=== PATIENT | male | born 1955 | race Caucasian/White ===

== ENCOUNTER 2017-06-16 13:03 | Inpatient (IN) | payer OTHER ==
[2017-06-16] MEDS: BACLOFEN 10 MG TAB PO (01:20)
[2017-06-16] MEDS: OMEPRAZOLE 20 MG CAP PO (01:20)
[2017-06-16] MEDS: MORPHINE 4 MG/ML 1ML SYRINGE IV ×3 (14:50→20:46)
[2017-06-16 14:53] LABS: BASO # 0.1 10^3/uL (0.0-0.2); BASO % 0.7 % (0.0-1.0); EOS # 0.1 10^3/uL (0.0-0.50); EOS % 0.6 % (0.0-3.0); IMMATURE GRANULOCYTE # 0.1 10^3/uL (0-0); IMMATURE GRANULOCYTE % 0.6 % (0-0); LYMPH # 3.6 10^3/uL (1.5-4.5); LYMPH % 22.8 % (24.0-44.0); MEAN CORPUSCULAR HEMOGLOBIN 28.3 pg (27.0-33.0); MEAN CORPUSCULAR HGB CONC 33.5 g/dl (32.0-36.5); MEAN CORPUSCULAR VOLUME 84.5 fl (80.0-96.0); MONO # 1.1 10^3/uL (0.0-0.8); MONO % 7.1 % (0.0-5.0); NEUTROPHILS # 10.7 10^3/uL (1.8-7.7); NEUTROPHILS % 68.2 % (36.0-66.0); PLATELET COUNT, AUTOMATED 461 10^3/uL (150-450); RED CELL DISTRIBUTION WIDTH 12.4 % (11.5-14.5); WHITE BLOOD COUNT 15.6 10^3/uL (4.0-10.0)
[2017-06-16 15:08] LABS: INR 0.98
[2017-06-16 15:16] LABS: ALBUMIN 3.9 GM/DL (3.2-5.2); ALBUMIN/GLOBULIN RATIO 0.93 (1.00-1.93); ALKALINE PHOSPHATASE 61 U/L (45-117); ALT/SGPT 40 U/L (12-78); ANION GAP 6 MEQ/L (8-16); AST/SGOT 28 U/L (7-37); BILIRUBIN,TOTAL 0.4 MG/DL (0.2-1.0); BLOOD UREA NITROGEN 20 MG/DL (7-18); CALCIUM LEVEL 9.2 MG/DL (8.8-10.2); CARBON DIOXIDE LEVEL 33 MEQ/L (21-32); CHLORIDE LEVEL 101 MEQ/L (98-107); CREATININE FOR GFR 0.92 MG/DL (0.70-1.30); GLOMERULAR FILTRATION RATE > 60.0 (>49); GLUCOSE, FASTING 82 MG/DL (80-110); POTASSIUM SERUM 3.6 MEQ/L (3.5-5.1); SODIUM LEVEL 140 MEQ/L (136-145); TOTAL PROTEIN 8.1 GM/DL (6.4-8.2)
[2017-06-16] MEDS: HYDROmorphone HCL 1 MG/ML SYRINGE (J1170) IV ×2 (16:30→18:05)
[2017-06-16] MEDS ORDERED: LIDOCAINE 1% MDV INJ 50 ML VIAL SC (17:00)
[2017-06-16] MEDS: LIDOCAINE 1% MDV 20ML VIAL SC (17:15)
[2017-06-16] MEDS: HumaLOG INSULIN (NovoLOG) PER UNIT SC (21:00)
[2017-06-16] MEDS ORDERED: LEVEMIR (INSULIN DETEMIR) 1 UNITS/0.01ML SC (21:00)
[2017-06-16] MEDS ORDERED: GLUCOSE 4 GM CHEW TABLET PO (21:45)
[2017-06-16] MEDS ORDERED: DEXTROSE 50% 50 ML SYRINGE IV (21:45)
[2017-06-16] MEDS ORDERED: GLUCAGON FOR INJ 1 MG VIAL (J1610) SC (21:45)
[2017-06-16] MEDS ORDERED: ONDANSETRON 4MG/2ML VIAL (J2405) IV (22:30)
[2017-06-16] MEDS ORDERED: PERCOCET 5MG/325MG TAB PO (22:30)
[2017-06-17 00:23] LABS: MAGNESIUM LEVEL 1.8 MG/DL (1.8-2.4)
[2017-06-17] MEDS: LR 1,000 ML IV ×4 (02:08→17:30)
[2017-06-17] MEDS: PERCOCET 5MG/325MG TAB PO ×2 (03:13→08:07)
[2017-06-17 05:15] LABS: MEAN CORPUSCULAR HEMOGLOBIN 28.2 pg (27.0-33.0); MEAN CORPUSCULAR HGB CONC 32.9 g/dl (32.0-36.5); MEAN CORPUSCULAR VOLUME 85.8 fl (80.0-96.0); PLATELET COUNT, AUTOMATED 374 10^3/uL (150-450); RED CELL DISTRIBUTION WIDTH 12.6 % (11.5-14.5); WHITE BLOOD COUNT 11.7 10^3/uL (4.0-10.0)
[2017-06-17 05:31] LABS: ESTIMATED AVERAGE GLUCOSE 192 MG/DL (60-110)
[2017-06-17 05:32] LABS: ANION GAP 8 MEQ/L (8-16); BLOOD UREA NITROGEN 23 MG/DL (7-18); CALCIUM LEVEL 8.7 MG/DL (8.8-10.2); CARBON DIOXIDE LEVEL 33 MEQ/L (21-32); CHLORIDE LEVEL 100 MEQ/L (98-107); CREATININE FOR GFR 0.82 MG/DL (0.70-1.30); GLOMERULAR FILTRATION RATE > 60.0 (>49); GLUCOSE, FASTING 174 MG/DL (80-110); POTASSIUM SERUM 3.8 MEQ/L (3.5-5.1); SODIUM LEVEL 141 MEQ/L (136-145)
[2017-06-17] MEDS: HumaLOG INSULIN (NovoLOG) PER UNIT SC ×3 (07:30→21:00)
[2017-06-17] MEDS: FLUoxetine 20 MG CAP PO (08:05)
[2017-06-17] MEDS: LISINOPRIL 20 MG TAB PO (08:05)
[2017-06-17] MEDS: LEVEMIR (INSULIN DETEMIR) 1 UNITS/0.01ML SC (08:05)
[2017-06-17] MEDS: OMEPRAZOLE 20 MG CAP PO ×2 (08:05→21:00)
[2017-06-17] MEDS: BACLOFEN 10 MG TAB PO (08:09)
[2017-06-17] MEDS: ceFAZolin 2 GM/D5W 50 ML IV BAG (J0690 PER 500MG) As Ordered (12:54)
[2017-06-17] MEDS ORDERED: LIDOCAINE 2% INJ 100 MG/5 ML SDV (FOR ANES.) As Ordered (13:09)
[2017-06-17] MEDS ORDERED: MIDAZOLAM INJ 2 MG/2 ML VIAL (J2250) As Ordered ×2 (13:09→16:34)
[2017-06-17] MEDS ORDERED: PROPOFOL 200 MG/20 ML VIAL As Ordered (13:09)
[2017-06-17] MEDS ORDERED: SUCCINYLCHOLINE 100 MG/5 ML SYRINGE (J0330) As Ordered (13:09)
[2017-06-17] MEDS ORDERED: fentaNYL 250 MCG/5 ML INJECTION (J3010) As Ordered (13:09)
[2017-06-17] MEDS ORDERED: ROCURONIUM BROMIDE 50 MG/5 ML VIAL As Ordered ×2 (13:09→14:22)
[2017-06-17] MEDS ORDERED: HYDROmorphone HCL 2 MG/ML 1ML VIAL (J1170) As Ordered (14:22)
[2017-06-17] MEDS ORDERED: PHENYLephrine HCL 500 MCG/5 ML (100MCG/ML) SYRINGE (J2370) As Ordered ×3 (14:22→15:54)
[2017-06-17] MEDS ORDERED: ONDANSETRON 4MG/2ML VIAL (J2405) As Ordered (15:34)
[2017-06-17] MEDS ORDERED: KETOROLAC 60 MG/2 ML VIAL (J1885) As Ordered (15:34)
[2017-06-17] MEDS ORDERED: GLYCOPYRROLATE INJ 0.2 MG/ML 2 ML VIAL As Ordered ×2 (15:54)
[2017-06-17] MEDS ORDERED: NEOSTIGMINE 10 MG/10 ML VIAL (J2710) As Ordered (15:54)
[2017-06-17] MEDS: BUPIVACAINE HCL 0.5% 30 ML VIAL As Ordered (16:25)
[2017-06-17] MEDS ORDERED: fentaNYL 100 MCG/2 ML INJECTION (J3010) As Ordered (16:34)
[2017-06-17] MEDS ORDERED: ACETAMINOPHEN TAB 650MG DOSE (2X325MG) PO (17:30)
[2017-06-17] MEDS ORDERED: PERCOCET 5MG/325MG TAB PO (17:30)
[2017-06-17] MEDS ORDERED: MORPHINE 10 MG/ML 1ML VIAL IV (17:30)
[2017-06-17] MEDS ORDERED: FLEET ENEMA PR (17:30)
[2017-06-17] MEDS ORDERED: ONDANSETRON 4MG/2ML VIAL (J2405) IV (17:30)
[2017-06-17] MEDS ORDERED: fentaNYL 100 MCG/2 ML INJECTION (J3010) IV (17:30)
[2017-06-17] MEDS ORDERED: NALOXONE INJ 0.4 MG/1 ML VIAL (J2310) As Ordered (18:54)
[2017-06-17 18:55] LABS: ABG BASE EXCESS -3.2 (-2.0-2.0); ABG HCO3 25.8 MEQ/L (22.0-26.0); ABG STANDARD HCO3 21.2 MEQ/L (22.0-26.0); ABG TOTAL CO2 27.8 MEQ/L (23.0-31.0)
[2017-06-17] MEDS: NALOXONE INJ 2 MG/2 ML SYRINGE (J2310) IV (18:55)
[2017-06-17 19:00] LABS: ABG PARTIAL PRESSURE CO2 64.3 mmHg (35.0-45.0)
[2017-06-17 19:02] LABS: ABG pH (ARTERIAL) 7.221 UNITS (7.350-7.450)
[2017-06-17 20:46] LABS: ABG BASE EXCESS -3.3 (-2.0-2.0); ABG HCO3 24.4 MEQ/L (22.0-26.0); ABG PARTIAL PRESSURE CO2 55.3 mmHg (35.0-45.0); ABG PARTIAL PRESSURE O2 90.2 mmHg (75.0-100.0); ABG STANDARD HCO3 21.7 MEQ/L (22.0-26.0); ABG TOTAL CO2 26.1 MEQ/L (23.0-31.0); ABG pH (ARTERIAL) 7.263 UNITS (7.350-7.450)
[2017-06-17] MEDS: SENOKOT S TAB PO (21:00)
[2017-06-18] MEDS: KETOROLAC 30 MG/ML VIAL (J1885) IV (02:33)
[2017-06-18 04:08] LABS: MEAN CORPUSCULAR HEMOGLOBIN 28.8 pg (27.0-33.0); MEAN CORPUSCULAR HGB CONC 31.9 g/dl (32.0-36.5); MEAN CORPUSCULAR VOLUME 90.2 fl (80.0-96.0); PLATELET COUNT, AUTOMATED 327 10^3/uL (150-450); RED CELL DISTRIBUTION WIDTH 12.7 % (11.5-14.5); WHITE BLOOD COUNT 13.9 10^3/uL (4.0-10.0)
[2017-06-18 04:29] LABS: ANION GAP 6 MEQ/L (8-16); BLOOD UREA NITROGEN 22 MG/DL (7-18); CALCIUM LEVEL 7.8 MG/DL (8.8-10.2); CARBON DIOXIDE LEVEL 33 MEQ/L (21-32); CHLORIDE LEVEL 103 MEQ/L (98-107); CREATININE FOR GFR 0.95 MG/DL (0.70-1.30); GLOMERULAR FILTRATION RATE > 60.0 (>49); GLUCOSE, FASTING 203 MG/DL (80-110); MAGNESIUM LEVEL 1.9 MG/DL (1.8-2.4); POTASSIUM SERUM 4.1 MEQ/L (3.5-5.1); SODIUM LEVEL 142 MEQ/L (136-145)
[2017-06-18] MEDS: ACETAMINOPHEN 500 MG TAB PO (05:43)
[2017-06-18] MEDS ORDERED: LEVEMIR (INSULIN DETEMIR) 1 UNITS/0.01ML SC (09:00)
[2017-06-18 09:13] LABS: ABG BASE EXCESS 5.6 (-2.0-2.0); ABG HCO3 29.6 MEQ/L (22.0-26.0); ABG PARTIAL PRESSURE CO2 40.8 mmHg (35.0-45.0); ABG PARTIAL PRESSURE O2 74.3 mmHg (75.0-100.0); ABG STANDARD HCO3 29.5 MEQ/L (22.0-26.0); ABG TOTAL CO2 30.8 MEQ/L (23.0-31.0); ABG pH (ARTERIAL) 7.478 UNITS (7.350-7.450)
[2017-06-18] MEDS: HumaLOG INSULIN (NovoLOG) PER UNIT SC ×4 (10:11→20:15)
[2017-06-18] MEDS: SENOKOT S TAB PO ×2 (10:11→19:49)
[2017-06-18] MEDS: LEVEMIR (INSULIN DETEMIR) 1 UNITS/0.01ML SC (10:11)
[2017-06-18] MEDS: MIRALAX *UNIT DOSE* 17GM PACKET PO (10:11)
[2017-06-18] MEDS: FUROSEMIDE 20 MG/2 ML VIAL (J1940) IV (10:12)
[2017-06-18] MEDS: ENOXAPARIN 40 MG/0.4 ML SYRINGE (J1650) SC (10:12)
[2017-06-18] MEDS: OMEPRAZOLE 20 MG CAP PO ×2 (10:12→19:48)
[2017-06-18] MEDS: FLUoxetine 20 MG CAP PO (10:12)
[2017-06-18] MEDS: PERCOCET 5MG/325MG TAB PO ×3 (10:53→20:17)
[2017-06-18] MEDS: ASPIRIN 81 MG ENTERIC TAB PO (14:18)
[2017-06-18] MEDS: IBUPROFEN 400 MG TAB PO (19:48)
[2017-06-19] MEDS ORDERED: OXYCODONE/APAP 5MG/325MG(BULK FOR ED) 1 TABLET PO
[2017-06-19] MEDS ORDERED: ENOXAPARIN 40 MG/0.4 ML SYRINGE (J1650) SC
[2017-06-19] MEDS: PERCOCET 5MG/325MG TAB PO ×3 (04:06→15:02)
[2017-06-19 04:27] LABS: MEAN CORPUSCULAR HEMOGLOBIN 28.3 pg (27.0-33.0); MEAN CORPUSCULAR VOLUME 88.6 fl (80.0-96.0); PLATELET COUNT, AUTOMATED 289 10^3/uL (150-450); RED CELL DISTRIBUTION WIDTH 12.2 % (11.5-14.5); WHITE BLOOD COUNT 12.7 10^3/uL (4.0-10.0)
[2017-06-19 04:51] LABS: ANION GAP 5 MEQ/L (8-16); BLOOD UREA NITROGEN 15 MG/DL (7-18); CALCIUM LEVEL 8.3 MG/DL (8.8-10.2); CARBON DIOXIDE LEVEL 32 MEQ/L (21-32); CHLORIDE LEVEL 100 MEQ/L (98-107); CREATININE FOR GFR 0.65 MG/DL (0.70-1.30); GLOMERULAR FILTRATION RATE > 60.0 (>49); GLUCOSE, FASTING 170 MG/DL (80-110); MAGNESIUM LEVEL 2.1 MG/DL (1.8-2.4); POTASSIUM SERUM 3.6 MEQ/L (3.5-5.1); SODIUM LEVEL 137 MEQ/L (136-145)
[2017-06-19] MEDS: ENOXAPARIN 40 MG/0.4 ML SYRINGE (J1650) SC (09:49)
[2017-06-19] MEDS: MIRALAX *UNIT DOSE* 17GM PACKET PO (09:49)
[2017-06-19] MEDS: HumaLOG INSULIN (NovoLOG) PER UNIT SC ×2 (09:50→13:20)
[2017-06-19] MEDS: LEVEMIR (INSULIN DETEMIR) 1 UNITS/0.01ML SC (09:55)
[2017-06-19] MEDS: FLUoxetine 20 MG CAP PO (09:56)
[2017-06-19] MEDS: POTASSIUM CHLORIDE 10 MEQ SR TABLET PO (09:56)
[2017-06-19] MEDS: SENOKOT S TAB PO (09:57)
[2017-06-19] MEDS: OMEPRAZOLE 20 MG CAP PO (09:57)
[2017-06-19] MEDS: ASPIRIN 81 MG ENTERIC TAB PO (09:57)
[2017-06-19] MEDS: FUROSEMIDE 20 MG/2 ML VIAL (J1940) IV (09:57)
== END 2017-06-19 16:50 | disposition home or self-care (01) | DRG 492 ==
LOC: M PCU 06-17 01:06 → M ED 13:03 → M ICU 06-17 21:30 → M ED INP 21:05 → M ICU 06-17 21:42
PROC: 0QSJ04Z Reposition Right Fibula with Internal Fixation Device, Open Approach (ICD-10-PCS; principal; 2017-06-17 09:45)
PROC: 0QSG04Z Reposition Right Tibia with Internal Fixation Device, Open Approach (ICD-10-PCS; 2017-06-17 09:45)
PROC: 0SSFXZZ Reposition Right Ankle Joint, External Approach (ICD-10-PCS; 2017-06-17 12:42)
DX: S82.841A Displaced bimalleolar fracture of right lower leg, initial encounter for closed fracture (principal); J96.01 Acute respiratory failure with hypoxia; J96.02 Acute respiratory failure with hypercapnia; I50.31 Acute diastolic (congestive) heart failure; E11.9 Type 2 diabetes mellitus without complications; R00.0 Tachycardia, unspecified; I11.0 Hypertensive heart disease with heart failure; I50.810 Right heart failure, unspecified; G47.33 Obstructive sleep apnea (adult) (pediatric); W00.0XXA Fall on same level due to ice and snow, initial encounter; Y92.014 Private driveway to single-family (private) house as the place of occurrence of the external cause; Y93.29 Activity, other involving ice and snow; Y99.9 Unspecified external cause status; Z79.82 Long term (current) use of aspirin; Z79.4 Long term (current) use of insulin; Z79.899 Other long term (current) drug therapy

== ENCOUNTER 2018-09-28 16:13 | Emergency (ER) | payer MEDICARE, OTHER ==
[~2018-09-28] VITALS: Ht 177.8 cm; Wt 118.2 kg
[~2018-09-28 16:13] MED LIST: ASPI81TA26 PO; ASPI81TA85 PO; BACL10TA2 PO; FLUO20CA19 PO; INSULADS INJ; INSULANT; LISI20TA PO; LISINOPRIL-HCTZ; LOVE1INJ SC; MELO15TA28 PO; METF10004 PO; OMEP20CA3 PO; OXYC1TAB23 PO; PERC5TAB12 PO; VITA-182 PO
[2018-09-28] MEDS ORDERED: ATOR80TA59 PO (16:46)
[2018-09-28] MEDS ORDERED: METF500T13 PO (16:46)
[2018-09-28] MEDS ORDERED: METF-877 PO (16:46)
[2018-09-28] MEDS ORDERED: ABIL1TAB11 PO (16:46)
[2018-09-28] MEDS ORDERED: AMLO10TA5 PO (16:46)
[2018-09-28] MEDS ORDERED: INSULANT SC (16:50)
[2018-09-28] MEDS ORDERED: INSUH10VL SC (16:53)
[2018-09-28 17:08] LABS: BASO # 0.1 10^3/uL (0.0-0.2); BASO % 0.8 % (0.0-1.0); EOS # 0.3 10^3/uL (0.0-0.50); EOS % 3.5 % (0.0-3.0); HEMATOCRIT 43.5 % (42.0-52.0); HEMOGLOBIN 14.6 g/dl (13.5-17.5); LYMPH # 3.7 10^3/uL (1.5-4.5); LYMPH % 48.5 % (24.0-44.0); MEAN CORPUSCULAR HEMOGLOBIN 29.3 pg (27.0-33.0); MEAN CORPUSCULAR HGB CONC 33.6 g/dl (32.0-36.5); MEAN CORPUSCULAR VOLUME 87.3 fl (80.0-96.0); MONO # 0.6 10^3/uL (0.0-0.8); MONO % 8.3 % (0.0-5.0); NEUTROPHILS % 38.5 % (36.0-66.0); PLATELET COUNT, AUTOMATED 313 10^3/uL (150-450); RED BLOOD COUNT 4.98 10^6/uL (4.30-6.10); WHITE BLOOD COUNT 7.7 10^3/uL (4.0-10.0)
[2018-09-28 17:29] LABS: ALBUMIN 3.6 GM/DL (3.2-5.2); ALT/SGPT 35 U/L (12-78); BILIRUBIN,TOTAL 0.2 MG/DL (0.2-1.0); BLOOD UREA NITROGEN 15 MG/DL (7-18); CALCIUM LEVEL 8.8 MG/DL (8.8-10.2); CARBON DIOXIDE LEVEL 29 MEQ/L (21-32); CHLORIDE LEVEL 108 MEQ/L (98-107); CREATININE FOR GFR 0.73 MG/DL (0.70-1.30); GLOMERULAR FILTRATION RATE > 60.0 (>49); GLUCOSE, FASTING 66 MG/DL (70-100); POTASSIUM SERUM 3.4 MEQ/L (3.5-5.1); SODIUM LEVEL 144 MEQ/L (136-145); TOTAL PROTEIN 6.9 GM/DL (6.4-8.2)
--- NOTE | 2018-09-28 17:34 | REP ---
Clinical: Chest pain. Technique: PA and lateral. Comparison: 06/17/2017. Findings: Mediastinum and cardiac silhouette are within normal limits. The lung asher demonstrate innumerable small miliary nodules which are nonspecific but appear chronic and relatively stable compared to 2013. Subtle superimposed acute process cannot be excluded. However no obvious consolidation, effusion or pneumothorax identified. Skeletal structures are intact. Impression: Diffuse miliary nodules suggest chronic change and may represent sequelae of prior viral infection. No obvious acute process appreciated. Electronically Signed by Cj Jones MD 09/28/2018 05:25 P
[2018-09-28 17:38] LABS: INFLUENZA A AMPLIFICATION NEGATIVE (NEGATIVE); INFLUENZA B AMPLIFICATION NEGATIVE (NEGATIVE)
[2018-09-28] MEDS ORDERED: SPIR-10 PO (18:14)
[2018-09-28] MEDS ORDERED: SPIRONOLACTONE 25 MG TAB PO STA (18:22)
[2018-09-28 18:55] VITALS: BP 184/80
--- NOTE | 2018-09-28 21:20 | ECGEPIP ---
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
--- NOTE | 2018-10-02 14:24 | ED PDOC ---
Post-Departure Follow-Up dr rose faxed formal report of cxr for fu Jayne Purdy MD Oct 02, 2018 14:24
== END 2018-09-28 18:56 | disposition home or self-care (01) ==
LOC: M ED 16:13 → EDUNIT# 16:13 → EDBD 16:13 → M ED 18:56
DX: I10 Essential (primary) hypertension (principal); J06.9 Acute upper respiratory infection, unspecified; R94.31 Abnormal electrocardiogram [ECG] [EKG]; E11.9 Type 2 diabetes mellitus without complications; E78.5 Hyperlipidemia, unspecified; G47.30 Sleep apnea, unspecified; M54.9 Dorsalgia, unspecified; G89.29 Other chronic pain; F41.9 Anxiety disorder, unspecified; F33.9 Major depressive disorder, recurrent, unspecified; E66.9 Obesity, unspecified; Z79.4 Long term (current) use of insulin; Z79.899 Other long term (current) drug therapy

== ENCOUNTER 2019-05-01 12:00 | Day surgery (SDC) | payer OTHER ==
[~2019-05-01] VITALS: Ht 177.8 cm; Wt 117.2 kg
[~2019-05-01 12:00] MED LIST changes: +ABIL1TAB11 PO; +AMLO10TA5 PO; +ATOR80TA59 PO; +D-10TAB3 PO; +INSUH10VL SC; +INSULANT SC; -LISI20TA PO; +LISI20TA19 PO; +METF-877 PO; +METF500T13 PO; +NS 1,000 ML IV ONE; -OMEP20CA3 PO; +OMEP20CA4 PO; +SPIR-10 PO
[2019-05-01] MEDS ORDERED: PROPOFOL 200 MG/20 ML VIAL As Ordered ONE (13:07)
--- NOTE | 2019-05-01 13:36 | ROOR ---
Patient Name: Feng Castillo Procedure Date: 05/01/2019 1:06 PM Date of : 1955 Age: 63 Room: [facility] Gender: Male Note Status: Finalized Procedure: Colonoscopy Indications: High risk colon cancer surveillance: Personal history of colonic polyps Providers: Vidal Sanchez MD Referring MD: Mckinley Sevilla Requesting Provider: Medicines: Monitored Anesthesia Care Complications: No immediate complications. Procedure: Pre-Anesthesia Assessment: - Prior to the procedure, a History and Physical was performed, and patient medications and allergies were reviewed. The patient is competent. The risks and benefits of the procedure and the sedation options and risks were discussed with the patient. All questions were answered and informed consent was obtained. Patient identification and proposed procedure were verified by the physician, the nurse and the anesthesiologist in the endoscopy suite. Mental Status Examination: alert and oriented. Airway Examination: normal oropharyngeal airway and neck mobility. Respiratory Examination: clear to auscultation. CV Examination: normal. Prophylactic Antibiotics: The patient does not require prophylactic antibiotics. Prior Anticoagulants: The patient has taken no previous anticoagulant or antiplatelet agents. ASA Grade Assessment: III - A patient with severe systemic disease. After reviewing the risks and benefits, the patient was deemed in satisfactory condition to undergo the procedure. The anesthesia plan was to use monitored anesthesia care (MAC). Immediately prior to administration of medications, the patient was re-assessed for adequacy to receive sedatives. The heart rate, respiratory rate, oxygen saturations, blood pressure, adequacy of pulmonary ventilation, and response to care were monitored throughout the procedure. The physical status of the patient was re-assessed after the procedure. The Colonoscope was introduced through the anus and advanced to the cecum, identified by appendiceal orifice and ileocecal valve. The colonoscopy was technically difficult and complex due to poor bowel prep, patient with frequent coughing, abdominal breathing, sleep apnea. The quality of the bowel preparation was adequate to identify polyps 6 mm and larger in size. Findings: The perianal and digital rectal examinations were normal. A few small-mouthed diverticula were found in the sigmoid colon. The entire examined colon appeared normal. Impression: - Diverticulosis in the sigmoid colon. - The entire examined colon is normal. - No specimens collected. Recommendation: - Discharge patient to home (ambulatory). - Repeat colonoscopy in 5 years for surveillance. Vidal Sanchez MD Vidal Sanchez MD 05/01/2019 1:35:39 PM Electronically signed by Vidal Sanchez MD Number of Addenda: 0 Note Initiated On: 05/01/2019 1:06 PM Estimated Blood Loss: Estimated blood loss: none.
[2019-05-01 14:04] VITALS: BP 172/72
== END 2019-05-01 14:06 | disposition home or self-care (01) ==
LOC: M OPP 12:00
PROVIDERS: ATTEND Surgery
DX: Z12.11 Encounter for screening for malignant neoplasm of colon (principal); Z86.010 Personal history of colon polyps; K57.30 Diverticulosis of large intestine without perforation or abscess without bleeding; I10 Essential (primary) hypertension; E78.5 Hyperlipidemia, unspecified; E10.9 Type 1 diabetes mellitus without complications; K21.9 Gastro-esophageal reflux disease without esophagitis; M19.90 Unspecified osteoarthritis, unspecified site; G47.30 Sleep apnea, unspecified; F32.9 Major depressive disorder, single episode, unspecified; F41.9 Anxiety disorder, unspecified; R06.83 Snoring; Z79.899 Other long term (current) drug therapy; Z87.891 Personal history of nicotine dependence

== ENCOUNTER 2020-06-12 13:57 | Emergency (ER) | payer OTHER ==
[~2020-06-12] VITALS: Ht 177.8 cm; Wt 112.0 kg
[~2020-06-12 13:57] MED LIST changes: -AMLO10TA5 PO; +AMLO1TAB25 PO; -ASPI81TA85 PO; +ASPI81TA86 PO; -FLUO20CA19 PO; +FLUO20CA22 PO; -LISI20TA19 PO; +LISI20TA35 PO; -NS 1,000 ML IV ONE; +OMEP1CAP73 PO; -OMEP20CA4 PO
[2020-06-12] MEDS ORDERED: TRUL10IN SC (14:13)
[2020-06-12] MEDS ORDERED: TOUJ300I2 SC ×2 (14:13→14:15)
[2020-06-12] MEDS ORDERED: KETOROLAC 60MG 2ML VIAL IM ONE (14:30)
--- NOTE | 2020-06-12 14:57 | REP ---
INDICATION: severe post occip pain bilat, down into neck. COMPARISON: None. TECHNIQUE: Helical scanning is acquired. 5 mm axial images were reformatted. Coronal MPR images were generated. FINDINGS: Bone window settings demonstrate an intact bony calvarium. There is no evidence of skull fracture or incidental bony calvarial lesion. The visualized paranasal sinuses appear clear. No intraorbital abnormality is seen. On soft tissue window setting images; the lateral, third, and fourth ventricles are normal in size and position. Mg-white differentiation pattern is normal above and below the tentorium. There are is no evidence of intracranial hemorrhage. No mass, edema, infarction, or midline shift is seen. No extra-axial fluid collection is appreciated. There is minimal generalized volume loss. There is vascular calcification in the distal internal carotid arteries. IMPRESSION: Vascular calcification and minimal generalized volume loss. Otherwise negative noncontrast head CT.. <Electronically signed by Bernard Ruiz > 06/12/20 [id number]
[2020-06-12 15:04] LABS: BASO # 0.1 10^3/uL (0.0-0.2); BASO % 1.1 % (0.0-1.0); EOS # 0.2 10^3/uL (0.0-0.5); EOS % 2.3 % (0.0-3.0); HEMATOCRIT 50.4 % (42.0-52.0); HEMOGLOBIN 16.9 g/dl (13.5-17.5); LYMPH # 3.9 10^3/uL (1.5-5.0); LYMPH % 37.4 % (24.0-44.0); MEAN CORPUSCULAR HEMOGLOBIN 29.8 pg (27.0-33.0); MEAN CORPUSCULAR HGB CONC 33.5 g/dl (32.0-36.5); MEAN CORPUSCULAR VOLUME 88.9 fl (80.0-96.0); MONO # 0.8 10^3/uL (0.0-0.8); NEUTROPHILS # 5.3 10^3/uL (1.5-8.5); NEUTROPHILS % 50.7 % (36.0-66.0); PLATELET COUNT, AUTOMATED 342 10^3/uL (150-450); RED BLOOD COUNT 5.67 10^6/uL (4.30-6.10); WHITE BLOOD COUNT 10.4 10^3/uL (4.0-10.0)
--- NOTE | 2020-06-12 15:12 | REP ---
INDICATION: severe post occip pain bilat, down into neck, limited ROM. COMPARISON: None. TECHNIQUE: Helical scanning is acquired and overlapping 2 mm high resolution axial images were generated and reviewed at bone and soft tissue window settings. Coronal and sagittal multiplanar re-formations images are generated. FINDINGS: There is no evidence of cervical spine element fracture. No skull base fracture is seen. Cervical vertebral body heights are preserved. Alignment is normal. Facet joints are normally aligned bilaterally at each cervical level on multiplanar re-formations images. There is no evidence of intraspinal or paraspinal hematoma. No extra vertebral abnormality is seen. There are mild degenerative spondylosis changes at C3-4 through C5-6. A small central disc protrusion is seen at the C3-4 disc level. No traumatic abnormality is observed. No extra vertebral abnormality is seen. There is some vascular calcification. IMPRESSION: Mild degenerative spondylosis changes. Small central focal disc protrusion C3-4. No acute bony abnormality.. <Electronically signed by Bernard Ruiz > 06/12/20 [id number]
[2020-06-12 16:14] LABS: ERYTHROCYTE SEDIMENTATION RATE 4 mm/hr (0-20)
[2020-06-12] MEDS ORDERED: CYCL-707 PO (16:16)
[2020-06-12 16:30] VITALS: BP 173/87
== END 2020-06-12 16:32 | disposition home or self-care (01) ==
LOC: M ED 13:57
DX: M50.220 Other cervical disc displacement, mid-cervical region, unspecified level (principal); E11.9 Type 2 diabetes mellitus without complications; I10 Essential (primary) hypertension; E78.5 Hyperlipidemia, unspecified; G47.33 Obstructive sleep apnea (adult) (pediatric); Z99.89 Dependence on other enabling machines and devices; Z79.899 Other long term (current) drug therapy; Z79.82 Long term (current) use of aspirin; Z79.4 Long term (current) use of insulin; Z87.891 Personal history of nicotine dependence
CPT/HCPCS: 36415; 70450; 72125; 85025; 85652; 86140; 96372; 99284; J1885

== ENCOUNTER 2021-09-29 11:33 | Emergency (ER) | payer OTHER, BC ==
[~2021-09-29] VITALS: Ht 177.8 cm; Wt 113.6 kg
[~2021-09-29 11:33] MED LIST changes: +CYCL-707 PO; +TOUJ300I2 SC; +TRUL10IN SC
[2021-09-29 13:01] VITALS: BP 151/69
== END 2021-09-29 13:18 | disposition home or self-care (01) ==
LOC: M ED 11:33
DX: S93.402A Sprain of unspecified ligament of left ankle, initial encounter (principal); S92.002A Unspecified fracture of left calcaneus, initial encounter for closed fracture; X50.9XXA Other and unspecified overexertion or strenuous movements or postures, initial encounter; Y92.89 Other specified places as the place of occurrence of the external cause; Y99.0 Civilian activity done for income or pay; E11.9 Type 2 diabetes mellitus without complications; I10 Essential (primary) hypertension; E78.5 Hyperlipidemia, unspecified; K21.9 Gastro-esophageal reflux disease without esophagitis; Z79.899 Other long term (current) drug therapy; Z79.82 Long term (current) use of aspirin; Z79.4 Long term (current) use of insulin

== ENCOUNTER 2022-01-13 08:49 | Emergency (ER) | payer BC, SELFPAY ==
[~2022-01-13] VITALS: Ht 177.8 cm; Wt 111.9 kg
[2022-01-13] MEDS ORDERED: LIDOCAINE 5% (LIDODERM) PATCH TD ONE (13:30)
[2022-01-13] MEDS ORDERED: KETOROLAC 30 MG/ML 1ML VIAL IM ONE (13:30)
[2022-01-13] MEDS ORDERED: METH-1164 PO (13:34)
[2022-01-13 14:22] VITALS: BP 158/74
[2022-01-13] MEDS ORDERED: LIDO5DIS41 TOP (14:23)
[2022-01-13] MEDS ORDERED: IBUP-1022 PO (14:25)
[2022-01-13] MEDS ORDERED: **NOTE PATIENT COMMENT** MISC XX SCH (21:00)
== END 2022-01-13 14:46 | disposition home or self-care (01) ==
LOC: M ED 08:49
DX: M50.30 Other cervical disc degeneration, unspecified cervical region (principal); G89.29 Other chronic pain; M54.9 Dorsalgia, unspecified; E11.9 Type 2 diabetes mellitus without complications; I10 Essential (primary) hypertension; E78.5 Hyperlipidemia, unspecified; K21.9 Gastro-esophageal reflux disease without esophagitis; G47.30 Sleep apnea, unspecified; Z79.899 Other long term (current) drug therapy; Z79.84 Long term (current) use of oral hypoglycemic drugs
CPT/HCPCS: 72125; 72128; 96372; 99283; J1885

== ENCOUNTER 2023-07-25 11:59 | Emergency (ER) | payer BC ==
[~2023-07-25] VITALS: Ht 177.8 cm; Wt 100.1 kg
[~2023-07-25 11:59] MED LIST changes: +IBUP-1022 PO; +LIDO5DIS41 TOP; +METH-1164 PO
[2023-07-25] MEDS ORDERED: LIDOCAINE 5% (LIDODERM) PATCH TD ONE (16:35)
[2023-07-25] MEDS ORDERED: NAPROXEN 250 MG TAB PO ONE (16:35)
[2023-07-25] MEDS ORDERED: ACETAMINOPHEN TAB 650MG DOSE (2X325MG) PO ONE (16:35)
[2023-07-25] MEDS ORDERED: NAPR-837 PO (17:35)
[2023-07-25] MEDS ORDERED: METH-1164 PO (17:35)
[2023-07-25] MEDS ORDERED: ASPE4PAD TOP (17:35)
[2023-07-25 17:46] VITALS: BP 139/70; TEMP 97.4; O2SAT 96
== END 2023-07-25 17:48 | disposition home or self-care (01) ==
LOC: M ED 11:59
DX: S39.012A Strain of muscle, fascia and tendon of lower back, initial encounter (principal); Y92.9 Unspecified place or not applicable; Y93.01 Activity, walking, marching and hiking; Y99.0 Civilian activity done for income or pay; W00.0XXA Fall on same level due to ice and snow, initial encounter; M50.10 Cervical disc disorder with radiculopathy, unspecified cervical region; F17.210 Nicotine dependence, cigarettes, uncomplicated; Z79.899 Other long term (current) drug therapy; Z79.1 Long term (current) use of non-steroidal anti-inflammatories (NSAID); Z79.84 Long term (current) use of oral hypoglycemic drugs

== ENCOUNTER → 2024-08-02 | Outpatient (CLI) | payer OTHER ==
[~2024-08-02] MED LIST changes: +ASPE4PAD TOP; +FLUO-365 PO; -FLUO20CA22 PO; +NAPR-837 PO
== END ==
LOC: M SOG 07:53
PROVIDERS: ATTEND Orthopaedic Surgery
DX: M25.561 Pain in right knee (principal); M25.562 Pain in left knee; M17.12 Unilateral primary osteoarthritis, left knee

== ENCOUNTER 2024-09-10 10:50 | Emergency (ER) | payer OTHER ==
[~2024-09-10] VITALS: Ht 177.8 cm; Wt 98.5 kg
[2024-09-10] MEDS ORDERED: TOUJ1.2I SC (11:03)
[2024-09-10] MEDS ORDERED: SEMA1PEN2 SQ (11:03)
[2024-09-10] MEDS ORDERED: ASPI81CH33 PO (11:03)
[2024-09-10 11:39] LABS: KETONE, URINE AUTO RFX NEGATIVE (NEGATIVE); LEUKOCYTE ESTERASE UR AUTO RFX NEGATIVE (NEGATIVE); NITRITE, URINE AUTO RFX NEGATIVE (NEGATIVE); RBC, URINE AUTO RFX 1 /HPF (0-3); SQUAM EPITHELIAL CELL UR AURFX 0 /HPF (0-6); WBC, URINE AUTO RFX 1 /HPF (0-3)
[2024-09-10 12:12] VITALS: BP 154/69; TEMP 97.7; O2SAT 97
[2024-09-10 12:35] LABS: Trichomonas vaginalis (AMP) NOT DETECTED (NEGATIVE)
[2024-09-10 12:59] LABS: GC DNA AMPLIFICATION NEGATIVE (NEGATIVE)
[2024-09-10] MEDS ORDERED: LEVO1TAB39 PO (13:07)
== END 2024-09-10 13:13 | disposition home or self-care (01) ==
LOC: M ED 10:50
DX: N50.812 Left testicular pain (principal); N45.1 Epididymitis; E11.9 Type 2 diabetes mellitus without complications; I10 Essential (primary) hypertension; F41.9 Anxiety disorder, unspecified; F32.A Depression, unspecified; F17.200 Nicotine dependence, unspecified, uncomplicated; Z79.899 Other long term (current) drug therapy